=== PATIENT | female | born 1975 | race African-American/Black ===

== ENCOUNTER → 2017-04-02 | Outpatient (CLI) | payer BC ==
--- NOTE | 2017-04-02 10:20 | KCIC ---
INDICATION: Dysphagia. Choking. TECHNIQUE: Barium esophagram utilized single and double contrast technique. Fluoroscopy time is 1 minute 46 seconds. Image count is 13. FINDINGS: The esophagus is normal caliber without intrinsic mass or extrinsic displacement. There is no ulceration. There is normal motility. No hiatal hernia is identified. There is no significant stasis or tapering at the GE junction. Gastroesophageal reflux was elicited through the course of this exam, greatest with the patient lying RINALDI. This was moderate in amount and to the level of the mid thoracic esophagus. IMPRESSION: Gastroesophageal reflux. Electronically signed by: Leo Laws MD (04/02/2017 10:16 AM) [id number]
== END | disposition home or self-care (01) ==
LOC: KCIC 09:16
PROVIDERS: ATTEND Internal Medicine Gastroenterology
DX: K21.9 Gastro-esophageal reflux disease without esophagitis (principal); R13.10 Dysphagia, unspecified
CPT/HCPCS: 74220